=== PATIENT | female | born 2000 | race Caucasian/White ===

== ENCOUNTER 2019-03-22 14:08 | Outpatient (CLI) | payer OTHER ==
--- NOTE | 2019-03-22 16:13 | RAD ---
Right foot 3 views HISTORY: Right foot injury. FINDINGS: Lisfranc joint alignment is anatomic. Plantar arch is maintained. Mildly comminuted predominantly oblique fracture of the distal shaft of the fifth metatarsal is prese nt with one third shaft width medial displacement of the major distal fragment. No extension into the articular surface. IMPRESSION: Right fifth metatarsal fracture. Findings were called to Dr. Thomas at 1601 hours. Code CR.
== END 2019-03-22 14:09 | disposition home or self-care (01) ==
LOC: SCSRAD 14:08
PROVIDERS: ATTEND Family Medicine
DX: M79.671 Pain in right foot (principal); S92.351A Displaced fracture of fifth metatarsal bone, right foot, initial encounter for closed fracture